=== PATIENT | female | born 1995 | race Caucasian/White ===

== ENCOUNTER 2017-04-29 15:54 | Emergency (ER) | payer MEDICAID, OTHER ==
[2017-04-29 16:06] VITALS: BP 126/93; PULSE 93; RESP 16; TEMP 97.7; O2SAT 97
--- NOTE | 2017-04-29 16:19 | EDPHY ---
H & P Time Seen by Provider: 04/29/17 16:05 HPI/ROS: HPI Index finger laceration. 21-year-old female by private vehicle. She reports that she was cleaning a glass vase when it broke and she cut the ulnar aspect of her mid left index finger. She has had a tetanus shot within the last 5 years. She is right-hand dominant. No other injury or complaint. ROS: Constitutional: No fever, no chills. No weakness. Musculoskeletal: As above. No other extremity pain. Skin: No rashes. As above. Neurological: No focal weakness or altered sensation. Past medical history: Epilepsy, asthma, . Social history: Nonsmoker. No alcohol. Here by herself. Physical Exam: General Appearance: Alert, no distress. This patient is responding to questions appropriately and in full sentences. This patient appears well- hydrated and well-nourished. Eyes: Pupils equal and round no pallor or injection. No lid edema, erythema or injection. Left index finger examination: Significant for a 2 cm jagged linear laceration ulnar aspect bit index finger, across the PIP joint to the subcutaneous fat. No pulsatile bleeding. The joint capsule was not lacerated. No tendon injury. The left index finger is neurovascularly intact. Please see wound care note for further details. Neurological: Motor sensory function is grossly intact. Cranial nerves are normal. Gait is normal. Skin: Warm and dry, no rashes. As above. Extremities are symmetrical. All joints range without pain or impingement. Psychiatric: No agitation. No depression. Database: EKG: Imaging: Procedures: Procedure: Splint placement. A aluminum finger splint was applied to the left index finger in the position of comfort. After application of the splint I returned and re-examined the patient. The splint was adequately immobilizing the joint and distal to the splint the patient's circulation and sensation was intact. Procedure: Laceration repair. Verbal consent was obtained from the patient. The 2 cm laceration on the mid index finger left hand was anesthetized in the usual fashion. The wound was irrigated, draped and explored to its base with a gloved finger. There were no deep structures involved. No tendon injury was identified. No foreign body was identified on gross exploration. The wound was repaired with 5, 5.0 Ethilon sutures placed in interrupted fashion. The wound repair was tolerated well and there were no complications. The procedure was performed by myself. Emergency department course: After suture repair as noted above wound care was discussed with the patient. She feels comfortable going home. Follow-up and return to emergency department precautions reviewed. All of her questions were answered. She was discharged in good condition. Differential Diagnosis: The differential diagnosis on this patient includes but is not limited to left index finger laceration. Tendon laceration, retained foreign body, significant neurovascular injury unlikely. This represents a partial list of diagnoses considered. These considerations are based on history, physical exam, past history, reassessment and diagnostic testing. Smoking Status: Current every day smoker Constitutional: Initial Vital Signs Temperature (C) 36.5 C 04/29/17 16:04 Heart Rate 93 04/29/17 16:04 Respiratory Rate 16 04/29/17 16:04 Blood Pressure 126/93 H 04/29/17 16:04 O2 Sat (%) 97 04/29/17 16:04 O2 Delivery Mode Room Air Allergies/Adverse Reactions: No Known Allergies Allergy (Verified 04/29/17 16:06) Home Medications: Medication Instructions Recorded Keppra 500 mg (RX) 500 mg BID 02/18/14 LAMOTRIGINE 200 mg BID 02/18/14 Proair Hfa Icu (RX) PRN 02/18/14 Departure - Departure Disposition: Home, Routine, Self-Care Clinical Impression: Laceration of left index finger Condition: Good Instructions: Laceration (ED), Finger Laceration (ED) Additional Instructions: Read and follow provided instructions. Keep the finger splint in place for the next 5 days. Sutures are to be removed in 10 days. Follow-up with your primary care physician in 2-3 days for wound check. Return to the emergency department for worsening pain, swelling, bleeding, redness, fever or other serious concerns. Referrals: NONE *PRIMARY CARE P,. [Primary Care Provider] - As per Instructions
== END 2017-04-29 17:01 | disposition home or self-care (01) ==
LOC: CED 15:54
PROC: 0HQGXZZ Repair Left Hand Skin, External Approach (ICD-10-PCS; principal; 2017-04-29)
DX: S61.211A Laceration without foreign body of left index finger without damage to nail, initial encounter (principal); F17.200 Nicotine dependence, unspecified, uncomplicated; J45.909 Unspecified asthma, uncomplicated; W25.XXXA Contact with sharp glass, initial encounter
CPT/HCPCS: L3925

== ENCOUNTER 2017-05-02 09:30 | Emergency (ER) | payer MEDICAID ==
[2017-05-02] MEDS ORDERED: IBUPROFEN 600 MG TAB PO ONE (09:50)
--- NOTE | 2017-05-02 09:53 | EDPHY ---
H & P Time Seen by Provider: 05/02/17 09:44 HPI/ROS: This patient complains of finger pain at the site of her left index finger laceration ulnar aspect sutured 3 days ago. She has been cleaning the wound over the past 24 hr after keeping it clean and dry for the 1st 2 days as instructed. She has a volar splint in place since the wound crosses the PIP joint. She reports mild pain but has not taken anything for the pain. She reports that she came in for a wound evaluation. She has no other complaints. ROS: No fevers or chills Integumentary: No erythema or discharge Neuro: No numbness or tingling 5 point ROS is otherwise negative Smoking Status: Current every day smoker Physical Exam: Physical Exam Vital signs are normal. General: No acute distress Cardiac: Brisk capillary refill is intact throughout affected digit Extremities: Atraumatic normal except for left index finger. That exam reveals a clean dry intact 2 cm laceration with [address] with good tissue approximation, no erythema discharge or warmth to touch. Skin: No rash or pallor. Neuro: Alert in the affected digit with no sensorimotor deficits. Allergies/Adverse Reactions: No Known Allergies Allergy (Verified 05/02/17 09:48) Home Medications: Medication Instructions Recorded Keppra 500 mg (RX) 500 mg BID 02/18/14 LAMOTRIGINE 200 mg BID 02/18/14 Proair Hfa Icu (RX) PRN 02/18/14 MDM/Departure - [facility] ED Course/Re-evaluation: Discussion: This patient's wound appears well with no evidence of infection. Patient is treated with ibuprofen for her pain and I counseled her to continue ibuprofen if needed and/or Tylenol. She will follow up in 7 days for suture removal provided she develops no additional symptoms or concerns - Depart Disposition: Home, Routine, Self-Care Clinical Impression: Visit for wound check Condition: Good Instructions: Care For Your Stitches (ED) Additional Instructions: Diagnosis: Wound check Plan: In another 2 days remove the splint and begin gently bending her finger. Continue your daily wound cleaning with warm soapy water Use ibuprofen and Tylenol if needed for pain control. Return in 7 days for suture removal per Return sooner if he develops redness, discharge or other concerns for infection Referrals: NONE *PRIMARY CARE P,. [Primary Care Provider] - As per Instructions
[2017-05-02 09:54] VITALS: BP 125/78; PULSE 94; RESP 16; TEMP 97.7; O2SAT 94
== END 2017-05-02 10:06 | disposition home or self-care (01) ==
LOC: CED 09:30
DX: Z48.01 Encounter for change or removal of surgical wound dressing (principal); F17.200 Nicotine dependence, unspecified, uncomplicated

== ENCOUNTER → 2017-06-19 | Outpatient (CLI) | payer MEDICAID | LOC: CIMAGING 14:03 | PROVIDERS: ATTEND Psychiatry & Neurology Neurology | DX: G40.909 Epilepsy, unspecified, not intractable, without status epilepticus (principal); J01.00 Acute maxillary sinusitis, unspecified | CPT/HCPCS: 70450-PO ==